=== PATIENT | female | born 1995 | race Caucasian/White ===

== ENCOUNTER 2016-08-28 18:16 | Emergency (ER) | payer MEDICAID ==
[2016-08-28] MEDS ORDERED: CALNTAB (18:55)
[2016-08-28] MEDS ORDERED: FERR1TAB36 PO (18:56)
--- NOTE | 2016-08-28 18:56 | PD ---
HPI Chief Complaint Yeast infection Date Seen: Aug 28, 2016 Time Seen: 18:50 Travel History International Travel<30 Days: No Contact w/Intl Traveler<30Days: No Known Affected Area: No History of Present Illness HPI 21-year-old 1 at 39+ weeks gestation who presents today for concerns that she has a yeast infection. She states that she treated herself with an exdw-syh-qkdrncl yeast product about 2 weeks ago and now has a return of her symptoms. She reports itching and curdy discharge. No bleeding, leakage of fluid or contractions. Para: 0 : 1 History Past Medical History Medical History: Denies Significant Hx Obstetric History Obstetric History Primigravida under the care of [facility] Past Surgical History Surgical History: No Previous Surgery Family History Family History: Negative Social History Alcohol Use: No Tobacco Use: No Substance Abuse: No Review of Systems Except as stated in HPI: all other systems reviewed are Neg Physical Exam Narrative GENERAL: Well-nourished, well-developed patient. SKIN: Warm and dry. HEAD: Normocephalic and atraumatic. EYES: No scleral icterus. No injection or drainage. ENT: No nasal drainage noted. Mucous membranes pink. Airway patent. NECK: Supple, trachea midline. No JVD. ABDOMEN/GI: Abdomen soft, non-tender, bowel sounds present, no rebound, no guarding Gravid to [-] weeks size Fundal Height: [-] GENITOURINARY: External Genitalia: intact and normal in appearance BUS glands: [The vagina contains a thick curdy discharge consistent with yeast infection-] Cervix: [-] Dilatation: [Closed-] Effacement: [-Long] Station: [-2-] Presentation: [-Vertex] Membranes: [intact ] Uterine Contractions: [-Mild irregular] FHT's: Category: [-] Baseline: [-] Reactive: [Yes-] Variability: [-] Decels: [-] EXTREMITIES: No cyanosis or edema. BACK: Nontender without obvious deformity. No CVA tenderness. NEUROLOGICAL: Awake and alert. Motor and sensory grossly within normal limits. Five out of 5 muscle strength in all muscle groups. Normal speech. Data Data Vital Signs Reviewed: Yes Orders Urinalysis - C+S If Indicated (08/28/16 18:21) MDM Medical Record Reviewed: No Narrative Course / MDM Assessment: 39 week primigravida with yeast infection Plan: She will initiate a repeat treatment course of ptco-oge-icwaons yeast medication. Labor precautions were reviewed with her. A group B strep culture was obtained. Diagnosis Diagnosis: Primary Impression: with 39 completed weeks gestation Additional Impression: Vaginitis affecting in third trimester, antepartum Disposition: 01 DISCHARGE HOME Condition: Good Law Smith MD Aug 28, 2016 18:56
== END 2016-08-28 19:01 | disposition home or self-care (01) ==
LOC: HOBED 18:16
DX: O23.593 Infection of other part of genital tract in pregnancy, third trimester (principal); Z3A.39 39 weeks gestation of pregnancy
CPT/HCPCS: 87081; 99284

== ENCOUNTER 2016-09-04 15:30 | Emergency (ER) | payer MEDICAID ==
[~2016-09-04 15:30] MED LIST: CALNTAB; FERR1TAB36 PO
--- NOTE | 2016-09-04 16:06 | PD ---
HPI Chief Complaint Decreased movement Date Seen: Sep 04, 2016 Travel History International Travel<30 Days: No Contact w/Intl Traveler<30Days: No Known Affected Area: No History of Present Illness HPI Patient is 21-year-old black female at 40 weeks followed [facility] care presents for decreased movement today. No bleeding or ruptured membranes no regular contractions Para: 0 : 1 History Past Medical History Medical History: Denies Significant Hx Social History Alcohol Use: No Tobacco Use: No Substance Abuse: No Allergies-Medications (Allergen,Severity, Reaction): Coded Allergies: No Known Allergies (Unverified , 09/04/16) Home Meds Reported Medications Ferrous Sulfate (Iron)325 Mg [id number] Mg PO BIDPC Ref 0 Take after a meal. 08/28/16 Vitamin (Calna)1 Tab Tab 08/28/16 Review of Systems General / Constitutional: No: Fever, Weight Gain, Chills, Other Eyes: No: Diploplia, Blurred Vision, Visual changes, Pain, Photophobia HENT: No: Headaches, Vertigo, Lightheadedness Cardiovascular: No: Irregular Rhythm, Chest Pain or Discomfort, Palpitations, Tachycardia, Syncope, Varicosities, Edema, Cyanosis Respiratory: No: Cough, Short of Breath, Other Gastrointestinal: No: Nausea, Vomiting, Diarrhea Genitourinary: No: Decreased Urinary Output, Oliguria Musculoskeletal: No: Limited ROM, Weakness, Cramping, Edema, Pain Skin: No Rash, No Itching, No Dryness, No Lumps, No Change in Pigmentation, No Change in Nails, No Alopecia, No Lesions Neurologic: No: Weakness, Dizziness, Syncope, Focal Abnormalities, Coordination Problem, Headache, Slurred Speech, Seizures Psychiatric: No: Depression, Suicidal Ideations, Homicidal Ideation Endocrine: No: Heat Intolerance, Cold Intolerance, Polydipsia, Polyuria, Other Physical Exam Narrative GENERAL: Well-nourished, well-developed patient. SKIN: Warm and dry. HEAD: Normocephalic and atraumatic. EYES: No scleral icterus. No injection or drainage. ENT: No nasal drainage noted. Mucous membranes pink. Airway patent. NECK: Supple, trachea midline. No JVD. CARDIOVASCULAR: Regular rate and rhythm without murmurs, gallops, or rubs. RESPIRATORY: Breath sounds equal bilaterally. No accessory muscle use. BREASTS: Bilateral exam showed no masses , no retractions, no nipple discharge. ABDOMEN/GI: Abdomen soft, non-tender, bowel sounds present, no rebound, no guarding Gravid to [40-] weeks size Fundal Height: [37-] GENITOURINARY: External Genitalia: intact and normal in appearance BUS glands: [-] Cervix: [-] Dilatation: [-fingertip] Effacement: [60-] Station: [-3] Presentation: [-vtx] Membranes: [intact ] Uterine Contractions: [occasional-] FHT's: Category: [-1] Baseline: [-133] Reactive: [-yes] Variability: [mod-] Decels: [none-] EXTREMITIES: No cyanosis or edema. BACK: Nontender without obvious deformity. No CVA tenderness. NEUROLOGICAL: Awake and alert. Motor and sensory grossly within normal limits. Five out of 5 muscle strength in all muscle groups. Normal speech. MDM Interpretation(s) Patient is 21-year-old black female at 40 weeks followed by [facility] for care presents for decreased movement. Patient states that she is feeling movement just a little bit less than normal and I related to the patient that is fairly normal at the end the baby slowdown some, she denies any other present problem the leaking bleeding etc. she is having a few irregular contractions barely feeling those. Cervix is fingertip 60 and -3 vertex and her heart rate tracing is reactive Plan Simmons discharged home with information on kick counts, for follow-up with her OB provider Diagnosis Diagnosis: Primary Impression: Decreased movement affecting management of in third trimester Disposition: 01 DISCHARGE HOME Condition: Stable Lee Adler II, MD Sep 04, 2016 16:06
== END 2016-09-04 16:20 | disposition home or self-care (01) ==
LOC: HOBED 15:30
DX: O36.8130 Decreased fetal movements, third trimester, not applicable or unspecified (principal); Z3A.40 40 weeks gestation of pregnancy
CPT/HCPCS: 99283

== ENCOUNTER 2016-09-09 20:43 | Inpatient (IN) | payer MEDICAID ==
[2016-09-09] MEDS ORDERED: OXYTOCIN 30 UNITS-500ML PREMIX 500 ML IV ONE (21:15)
[2016-09-09] MEDS ORDERED: MINERAL OIL 10 ML VIAL TOPICAL PRN (21:15)
[2016-09-09] MEDS: LACTATED RINGER'S 1000 ML INJ 1,000 ML IV SCH (21:15)
[2016-09-09] MEDS ORDERED: LACTATED RINGER'S 1000 ML INJ 1,000 ML IV PRN (21:15)
[2016-09-09] MEDS ORDERED: SODIUM CHLORID 0.9% 500 ML INJ 500 ML IV PRN (21:15)
[2016-09-09] MEDS ORDERED: LIDOCAINE HCL 1% 50 ML VIAL I-DERMAL PRN (21:15)
[2016-09-09] MEDS ORDERED: LIDOCAINE HCL 1% 50 ML VIAL INFIL PRN (21:15)
[2016-09-09] MEDS ORDERED: DINOPROSTONE 10 MG VAG INSERT VAGINAL ONE (21:15)
[2016-09-09] MEDS ORDERED: CITRIC ACID-SODIUM CITRATE LIQ 30 ML UDC PO SCH (21:15)
[2016-09-09 21:18] VITALS: BP 132/72; PULSE 81
--- NOTE | 2016-09-09 21:22 | HHI.HP ---
HPI Travel History International Travel<30 Days: No Contact w/Intl Traveler<30Days: No Known Affected Area: No History of Present Illness HPI This patient is a 21-year-old 1 para 0 EDC is September 01, 2016 presently at 41 weeks and 1 day she presents for induction of labor secondary to postdates care with [facility] as been unremarkable history of anemia her one-hour GTT was 76 group B strep is negative GC chlamydia negative Patient having no complaints no ruptured membranes no contractions no vaginal bleeding states the baby is active History Past Medical History Narrative Medical No known drug allergies no major medical problems Obstetric History Obstetric History First Past Surgical History Surgical History: No Previous Surgery Family History Family History: Negative Social History Alcohol Use: No Tobacco Use: No Substance Abuse: No Allergies-Medications (Allergen,Severity, Reaction): Coded Allergies: No Known Allergies (Unverified , 09/04/16) Home Meds Reported Medications Ferrous Sulfate (Iron)325 Mg Top801 Mg PO BIDPC Ref 0 Take after a meal. 08/28/16 Vitamin (Calna)1 Tab Tab 08/28/16 Physical Exam Narrative GENERAL: Well-nourished, well-developed patient. Alert oriented 3 and cooperative in no acute distress CARDIOVASCULAR: Regular rate and rhythm without murmurs, gallops, or rubs. RESPIRATORY: Breath sounds equal bilaterally. No accessory muscle use. ABDOMEN/GI: Gravid term estimated weight 6-1/2-7 pounds Gravid to [-] weeks size term Fundal Height: [-] GENITOURINARY: External Genitalia: intact and normal in appearance BUS glands: [-] Cervix: [-] Posterior soft Dilatation: [-] 1 cm Effacement: [-] 80% effaced Station: [-] -1 station Presentation: [-] Vertex Membranes: [intact Uterine Contractions: [-] Occasional irregular FHT's: Category: [-] 1 Baseline: [-] 140 Reactive: [-]+ Variability: [-] Moderate Decels: [-] 0 EXTREMITIES: No cyanosis or edema. 2+ reflexes NEUROLOGICAL: Awake and alert. Motor and sensory grossly within normal limits. Five out of 5 muscle strength in all muscle groups. Normal speech. Data Data Vital Signs Reviewed: Yes Orders Admit To Inpatient (09/09/16 ) Code Status (09/09/16 21:15) Vital Signs (Adult) .Per protocol (09/09/16 21:15) ^ Heart (09/09/16 21:15) ^ Amnioinfusion (09/09/16 21:15) Urinary Catheter Management .ONCE (09/09/16 21:15) Diet Liquid (09/10/16 Breakfast) Lactated Ringer's 1000 Ml Inj (Lr 1000 M (09/09/16 21:15) Lactated Ringer's 1000 Ml Inj (Lr 1000 M (09/09/16 21:15) Sodium Chlorid 0.9% 500 Ml Inj (Ns 500 M (09/09/16 21:15) Sodium Chlor 0.9% 1000 Ml Inj (Ns 1000 M (09/09/16 21:35) Lidocaine 1% Inj (50 Ml) (Xylocaine 1% I (09/09/16 21:15) Citric Acid-Sodium Citrate Liq (Bicitra (09/09/16 21:15) Fentanyl Inj (Fentanyl Inj) (09/09/16 21:15) Fentanyl Inj (Fentanyl Inj) (09/09/16 21:15) Complete Blood Count With Diff (09/09/16 21:15) Hold Clot (09/09/16 21:15) Abo/Rh Blood Type (09/09/16 21:15) Urinalysis - C+S If Indicated (09/09/16 21:15) Resp Oxygen Non Rebreathe Mask (09/09/16 ) ^ Epidural / Intrathecal Infus (09/09/16 21:15) Oxytocin 30 Units-500ml Premix (Pitocin (09/09/16 21:15) Lidocaine 1% Inj (50 Ml) (Xylocaine 1% I (09/09/16 21:15) Light Mineral Oil (Muri-Lube Oil) (09/09/16 21:15) ^ Non Stress Test (09/09/16 21:15) Response To Medication .Post New Med Administration, Reaction (09/09/16 21:15) ^ Discontinue Medication (09/09/16 21:15) Oxytocin Drip (1-1-30) (09/10/16 09:00) Dinoprostone Vag Insert (Cervidil Vag In (09/09/16 21:15) Assessment/Plan Assessment and Plan Assessment; 21-year-old 1 para 0 at 41 weeks 1 day Postdates Group B strep negative Plan; admit External monitoring IV fluid hydration CBC type and screen Cervidil cervical ripening Pitocin in the a.Margi Wallace MD Sep 09, 2016 21:22
[2016-09-09 21:23] VITALS: RESP 18; TEMP 98.6
[2016-09-09] MEDS ORDERED: SODIUM CHLOR 0.9% 1000 ML INJ 1,000 ML IV PRN (21:35)
[2016-09-09 21:42] LABS: BLOOD, URINE NEG (NEG); COMMENT (UR) CULTURE INDICATED; CULTURE IF INDICATED CULTURE INDICATED; GLUCOSE,URINE NEG (NEG); KETONE, URINE NEG (NEG); MUCUS URINE FEW /lpf (OCC); NITRITE,URINE NEG (NEG); PH, URINE 7.5 (5.0-8.5); SQUAMOUS EPITHELIAL CELL URINE 5 /hpf (0-5); URINE COLOR YELLOW (YELLW/STRAW)
[2016-09-09 22:07] LABS: AUTOMATED NEUTROPHIL # 5.8 TH/MM3 (1.8-7.7); BASOPHIL % 0.3 % (0.0-2.0); EOSINOPHIL # 0.1 TH/MM3 (0-0.4); EOSINOPHIL % 1.1 % (0.0-4.0); HEMATOCRIT 32.5 % (35.0-46.0); HEMO FLAGS DIFF FINAL; LYMPHOCYTE # 1.2 TH/MM3 (1.0-4.8); MEAN CELL VOLUME 78.2 FL (80.0-100.0); MEAN CORPUSCULAR HGB CONC 33.2 % (32.0-36.0); MONO % 8.4 % (0.0-8.0); NEUT % 75.2 % (16.0-70.0); PLATELET COUNT 265 TH/MM3 (150-450); RED BLOOD COUNT 4.15 MIL/MM3 (4.00-5.30); RED CELL DISTRIBUTION WIDTH 17.1 % (11.6-17.2); WHITE BLOOD COUNT 7.7 TH/MM3 (4.0-11.0)
[2016-09-09 22:30] VITALS: BP 130/74; PULSE 83
[2016-09-09 22:31] VITALS: RESP 18
[2016-09-09 23:45] VITALS: BP 135/80; PULSE 81; RESP 18; TEMP 98.2
[2016-09-10] VITALS (64 sets, daily range): BP systolic 101–164; BP diastolic 51–149; PULSE 71–130; RESP 18–20; TEMP 98.2–99.4
--- NOTE | 2016-09-10 00:43 | PD.LABORPN ---
Subjective Subjective Patient and a considerable amount of pain desires an epidural Objective Vital Signs Episode of a variable deceleration good recovery Cervidil has been removed Vital Signs Date Time Temp Pulse Resp B/P Pulse Ox O2 Delivery O2 Flow Rate FiO2 09/09/16 23:45 18 09/09/16 23:45 98.2 81 135/80 09/09/16 22:31 18 09/09/16 22:30 83 130/74 09/09/16 21:23 98.6 09/09/16 21:23 18 09/09/16 21:18 81 132/72 Objective Pelvic Exam: Cervix: [-] Slightly posterior Dilatation: [-] 4 cm Effacement: [-] 100% Station: [-] -2 station Presentation: [-] Vertex Membranes: [intact Uterine Contractions: [-] Every 2 minutes FHT's: Category: [-]1 Baseline: [-] 150 Reactive: [-] + Variability: [-] Moderate ecfz-ia-ocwg variability Decels: [-] Previous episode of a variable deceleration Assessment/Plan Assessment and Plan Assessment; good progress of labor Cervidil removed Epidural anesthesia Plan; will do artificial rupture of membranes once epidural is placed Margi Aguillon MD Sep 10, 2016 00:43
[2016-09-10] MEDS ORDERED: fentaNYL 2MCG-BUPIV 0.125% INJ 100 ML ONE (00:47)
[2016-09-10] MEDS ORDERED: NO SYSTEM NARCOTICS XX PRN (01:45)
[2016-09-10] MEDS ORDERED: fentaNYL 2MCG-BUPIV 0.125% 100 ML EPIDURAL SCH (01:45)
[2016-09-10] MEDS ORDERED: DO NOT ADMINISTER ANTICOAGULANTS XX PRN (01:45)
[2016-09-10] MEDS ORDERED: ePHEDrine/NS 25 MG/5 ML SYR IV PRN (01:45)
--- NOTE | 2016-09-10 04:27 | PD.LABORPN ---
Subjective Subjective Patient is comfortable with an epidural Objective Vital Signs Vital Signs Date Time Temp Pulse Resp B/P Pulse Ox O2 Delivery O2 Flow Rate FiO2 09/10/16 04:00 96 109/63 09/10/16 03:37 98.5 18 09/10/16 03:30 94 109/60 09/10/16 03:00 102 101/51 09/10/16 02:45 18 09/10/16 02:30 97 105/55 09/10/16 02:15 18 09/10/16 02:00 87 118/62 09/10/16 01:40 18 09/10/16 01:35 96 09/10/16 01:30 145/79 09/10/16 01:25 90 09/10/16 01:24 129/60 09/10/16 01:20 83 124/63 09/10/16 01:15 88 129/68 09/10/16 01:10 92 158/92 09/10/16 01:06 104 137/84 09/10/16 00:55 106 153/91 09/09/16 23:45 18 09/09/16 23:45 98.2 81 135/80 09/09/16 22:31 18 09/09/16 22:30 83 130/74 09/09/16 21:23 98.6 09/09/16 21:23 18 09/09/16 21:18 81 132/72 Objective Pelvic Exam: Cervix: [-] Line Dilatation: [-] 4-5 cm Effacement: [-] 100% effaced Station: [-] -2 station Presentation: [-] Vertex Membranes: ruptured] scant amount of fluid as there was bloody show at the surface fluid mixed with blood but no meconium seen Uterine Contractions: [-] Irregular FHT's: Category: [-] 1 Baseline: [-] 150-160 Reactive: [-]+ Variability: [-] Moderate pznu-pd-odqx variability Decels: [-] Patient had an episode of what appeared to be a variable deceleration no repeat seen Assessment/Plan Assessment and Plan Assessment; irregular pattern Scant amniotic fluid most likely secondary to postdates Plan; augment with very low dose Pitocin as the patient presently has a category 1 tracing Moderate jpyk-he-yvgl variability with positive accelerations with scalp stim no decelerations noted at this time Will give 1 milliunit of Pitocin Margi Aguillon MD Sep 10, 2016 04:27
[2016-09-10] MEDS: LACTATED RINGER'S 1000 ML INJ 1,000 ML IV SCH (05:15)
--- NOTE | 2016-09-10 05:52 | PD.LABORPN ---
Subjective Subjective Patient is still comfortable with epidural Objective Vital Signs Patient examined she is 100% effaced 5 cm dilated and to what appeared to be late decelerations in a row however the beat variability is moderate she has positive accelerations with acoustic stimulation and scalp stem IUPC placed to better pecan picker the contractions the Pitocin which had been started at 1 cm was discontinued as the patient appears to not tolerate Pitocin well She is presently receiving and amnioinfusion positional change sitting straight up And now has a category 1 tracing with baseline about 150 positive accelerations moderate tndn-rn-ynlc variability We'll continue to monitor closely Vital Signs Date Time Temp Pulse Resp B/P Pulse Ox O2 Delivery O2 Flow Rate FiO2 09/10/16 05:30 84 125/68 09/10/16 05:00 86 111/58 09/10/16 04:45 18 09/10/16 04:30 79 110/54 09/10/16 04:00 96 109/63 09/10/16 03:37 98.5 18 09/10/16 03:30 94 109/60 09/10/16 03:00 102 101/51 09/10/16 02:45 18 09/10/16 02:30 97 105/55 09/10/16 02:15 18 09/10/16 02:00 87 118/62 09/10/16 01:40 18 09/10/16 01:35 96 09/10/16 01:30 145/79 09/10/16 01:25 90 09/10/16 01:24 129/60 09/10/16 01:20 83 124/63 09/10/16 01:15 88 129/68 09/10/16 01:10 92 158/92 09/10/16 01:06 104 137/84 09/10/16 00:55 106 153/91 09/09/16 23:45 18 09/09/16 23:45 98.2 81 135/80 09/09/16 22:31 18 09/09/16 22:30 83 130/74 Objective Pelvic Exam: Cervix: [-] Dilatation: [-] Effacement: [-] Station: [-] Presentation: [-] Membranes: [intact or ruptured] Uterine Contractions: [-] FHT's: Category: [-] Baseline: [-] Reactive: [-] Variability: [-] Decels: [-] Menjivar-Winn,Margi L. MD Sep 10, 2016 05:52
--- NOTE | 2016-09-10 07:02 | PD.LABORPN ---
Objective Vital Signs Vital Signs Date Time Temp Pulse Resp B/P Pulse Ox O2 Delivery O2 Flow Rate FiO2 09/10/16 06:37 18 09/10/16 06:30 79 114/64 09/10/16 06:07 98.5 09/10/16 06:06 18 09/10/16 06:00 71 122/65 09/10/16 05:30 84 125/68 09/10/16 05:00 86 111/58 09/10/16 04:45 18 09/10/16 04:30 79 110/54 09/10/16 04:00 96 109/63 09/10/16 03:37 98.5 18 09/10/16 03:30 94 109/60 09/10/16 03:00 102 101/51 09/10/16 02:45 18 09/10/16 02:30 97 105/55 09/10/16 02:15 18 09/10/16 02:00 87 118/62 09/10/16 01:40 18 09/10/16 01:35 96 09/10/16 01:30 145/79 09/10/16 01:25 90 09/10/16 01:24 129/60 09/10/16 01:20 83 124/63 09/10/16 01:15 88 129/68 09/10/16 01:10 92 158/92 09/10/16 01:06 104 137/84 09/10/16 00:55 106 153/91 09/10/16 00:47 18 09/09/16 23:45 18 09/09/16 23:45 98.2 81 135/80 Objective Completely effaced/6 cm dilated/vertex at a -1 station FHT's: Category: [-] 1 Baseline: [-]140 Reactive: [-] + Variability: [-] Moderate variability Decels: [-] Patient periodically has a variable deceleration presently she has a category 1 tracing Is moderate variability there's positive accelerations Positive accelerations with scalp stimulation as well as acoustic stimulation Contractions are now every 2 minutes Progress has been made in labor In view of the reassuring heart rate will continue progression in labor Pitocin was discontinued some time ago as the baby was not even tolerating the 1 milliunit Amnioinfusion is presently running There has been no meconium although there was only a scant amount of fluid present We'll continue to monitor closely Hospitalist changing shifts at 10 AM Will sign this patient out to the on coming hospitalist if she is undelivered Margi Aguillon MD Sep 10, 2016 07:02
--- NOTE | 2016-09-10 08:32 | PD.LABORPN ---
Objective Vital Signs Patient examined; 100% effaced Cervix is 7-8 cm dilated Vertex is at a 0 to almost a +1 station The cervix is tight around the vertex Contractions are roughly every 2 minutes moderate intensity Positive accelerations with scalp stimulation Some early to variable decelerations however moderate magh-eg-uiym variability positive accelerations Positive accelerations with scalp stim and acoustic stimulation Continue to monitor the patient closely Vital Signs Date Time Temp Pulse Resp B/P Pulse Ox O2 Delivery O2 Flow Rate FiO2 09/10/16 08:00 101 126/79 09/10/16 07:54 20 09/10/16 07:54 82 115/63 09/10/16 07:30 83 115/67 09/10/16 07:00 20 09/10/16 06:59 98.3 09/10/16 06:59 76 121/64 09/10/16 06:37 18 09/10/16 06:30 79 114/64 09/10/16 06:07 98.5 09/10/16 06:06 18 09/10/16 06:00 71 122/65 09/10/16 05:30 84 125/68 09/10/16 05:00 86 111/58 09/10/16 04:45 18 09/10/16 04:30 79 110/54 09/10/16 04:00 96 109/63 09/10/16 03:37 98.5 18 09/10/16 03:30 94 109/60 09/10/16 03:00 102 101/51 09/10/16 02:45 18 09/10/16 02:30 97 105/55 09/10/16 02:15 18 09/10/16 02:00 87 118/62 09/10/16 01:40 18 09/10/16 01:35 96 09/10/16 01:30 145/79 09/10/16 01:25 90 09/10/16 01:24 129/60 09/10/16 01:20 83 124/63 09/10/16 01:15 88 129/68 09/10/16 01:10 92 158/92 09/10/16 01:06 104 137/84 09/10/16 00:55 106 153/91 09/10/16 00:47 18 Objective Pelvic Exam: Cervix: [-] Dilatation: [-] Effacement: [-] Station: [-] Presentation: [-] Membranes: [intact or ruptured] Uterine Contractions: [-] FHT's: Category: [-] Baseline: [-] Reactive: [-] Variability: [-] Decels: [-] Margi Aguillon MD Sep 10, 2016 08:32
[2016-09-10] MEDS ORDERED: OXYTOCIN 30 UNITS-500ML PREMIX 500 ML IV SCH (09:00)
--- NOTE | 2016-09-10 10:55 | PD.OB.DELI ---
Delivery Date: Sep 10, 2016 Anesthesia: Epidural Episiotomy: None Vaginal Delivery: Normal, Spontaneous Presentation: Occiput anterior Nuchal Cord: None Delayed cord clamping (45 sec): Yes Infant: Male One Minute : 9 Five Minute : 9 Weight: 2895 grams Infant Care: Suctioned, Responded to stimulation Placenta: Spontaneous delivery, Intact, 3 vessel cord Laceration: Vaginal laceration, 1 deg Repair: Chromic interrupted, Chromic running Additional Information 21 year old now delivered at 41/2 weeks gestation via vaginal delivery over an intact perineum. Placenta delivered spontaneously intact with 3-vessel cord. Apgars were 9/9. A small first degree vaginal laceration was repaired using 3.0 chromic suture and small ~1cm laceration along right anterior vaginal wall repaired using 3.0 running chromic suture. EBL < 500 cc. (Bobby Yang MD R1) Additional Information Patient seen and evaluated with resident, delivery performed under direct supervision, agree with assessment and plan. (Law Smith MD) Bobby Yang MD R1 Sep 10, 2016 10:55 Law Smith MD Sep 10, 2016 12:48
[2016-09-10] MEDS ORDERED: DOCUSATE SODIUM 50 MG/SENNA 8.6 MG TAB PO PRN (11:00)
[2016-09-10] MEDS ORDERED: WITCH HAZEL 50%/GLYCERIN 12.5% 40 PAD JAR TOPICAL PRN (11:00)
[2016-09-10] MEDS ORDERED: BENZOCAINE 20% TOPICAL SPRAY 60 ML CAN TOPICAL PRN (11:00)
[2016-09-10] MEDS ORDERED: ONDANSETRON ODT 4 MG TAB PO PRN (11:00)
[2016-09-10] MEDS ORDERED: SODIUM CHLORIDE 0.9% FLUSH 5 ML FLUSH IV PRN (11:00)
[2016-09-10] MEDS ORDERED: ALUMINUM/MAGNESIUM/SIMETH 30 ML CUP PO PRN (11:00)
[2016-09-10] MEDS ORDERED: MEASLES, MUMPS, RUBELLA VACCINE 0.5 ML VIAL SQ ONE (16:00)
[2016-09-10] MEDS ORDERED: DIPHTH/TETANUS/ACEL PERTUSSIS (BOOSTER) 0.5 ML VIAL/PFS IM ONE (16:00)
[2016-09-10] MEDS ORDERED: ZOLPIDEM TARTRATE 5 MG TAB PO PRN (21:00)
[2016-09-10] MEDS: SODIUM CHLORIDE 0.9% FLUSH 5 ML FLUSH IV SCH (21:00)
[2016-09-10] MEDS: IBUPROFEN 600 MG TAB PO PRN (23:35)
[2016-09-11 08:45] VITALS: BP 105/63; PULSE 68; RESP 18; TEMP 97.5
[2016-09-11] MEDS: IBUPROFEN 600 MG TAB PO PRN ×2 (08:54→17:07)
--- NOTE | 2016-09-11 10:39 | HHI.OB ---
Subjective Post Day: 1 Remarks Pt seen and examined this morning. day # 1 AFVSS overnight. Decreased lochia. Denies dysuria. No breast tenderness. She is feeding the baby via breast and bottle. Appetite good. No nausea or vomiting. Patient has not yet had a bowel movement. + flatus. Ambulating well. Denies calf pain or shortness of breath. Otherwise, she is doing well this morning and has no other concerns. (Justice Dueñas MD R2) Remarks Patient seen and evaluated with resident under direct supervision, agree with assessment and plan. (Law Smith MD) Objective Vitals/I&O Vital Signs Date Time Temp Pulse Resp B/P Pulse Ox O2 Delivery O2 Flow Rate FiO2 09/10/16 21:00 98.2 85 18 116/69 09/10/16 13:33 98.3 09/10/16 13:32 86 18 118/58 09/10/16 13:15 99.1 09/10/16 12:30 88 117/71 09/10/16 12:20 99 09/10/16 12:15 91 09/10/16 12:10 91 09/10/16 12:05 93 09/10/16 12:00 105 09/10/16 12:00 103 131/66 09/10/16 11:55 89 09/10/16 11:54 99.0 18 09/10/16 11:52 87 120/61 09/10/16 11:50 18 09/10/16 11:50 100 09/10/16 11:50 120/61 09/10/16 11:45 106 09/10/16 11:40 101 09/10/16 11:35 101 09/10/16 11:33 18 09/10/16 11:30 97 09/10/16 11:30 109 124/83 09/10/16 11:10 108 09/10/16 11:07 18 09/10/16 11:07 98 114/86 09/10/16 11:05 102 09/10/16 11:00 111 115/87 09/10/16 11:00 109 09/10/16 10:56 99.4 09/10/16 10:53 130 20 125/83 09/10/16 10:38 124 131/74 Objective Remarks GENERAL: Well-nourished, well-developed patient. CARDIOVASCULAR: Regular rate and rhythm without murmurs, gallops, or rubs. RESPIRATORY: Breath sounds equal bilaterally. No accessory muscle use. ABDOMEN/GI: Abdomen soft, non-tender. Fundus: Firm, non-tender at umbilicus. GENITOURINARY: Light to moderate bleeding. EXTREMITIES: No cyanosis or edema, non-tender, without signs of DVT. Medications and IVs Current Medications Medications (Trade) Dose Ordered Sig/Sidney Route Start Time Stop Time Status Last Admin Lactated Ringer's 1,000 ml @ 125 mls/hr Q8H IV 09/09/16 21:15 09/10/16 05:15 Lactated Ringer's 1,000 ml @ 3,000 mls/hr Q20M PRN IV 09/09/16 21:15 (NS 1000 ml Inj) 1,000 ml @ 100 mls/hr Q10H PRN IV 09/09/16 21:35 09/10/16 06:24 (fentaNYL INJ) 50 mcg Q1H PRN IV PUSH 09/09/16 21:15 09/10/16 00:35 (fentaNYL INJ) 100 mcg Q1H PRN IV PUSH 09/09/16 21:15 Mineral Oil 10 ml 10 ml UNSCH PRN TOPICAL 09/09/16 21:15 Oxytocin 500 ml @ 0 mls/hr TITRATE IV 09/10/16 09:00 09/10/16 05:17 (fentaNYL 2MCG-BUPIV 0.125% INJ) 100 ml @ 0 mls/hr TITRATE EPIDURAL 09/10/16 01:45 (NS Flush) 2 ml BID IV 09/10/16 21:00 (NS Flush) 2 ml UNSCH PRN IV 09/10/16 11:00 (Tylenol) 650 mg Q4H PRN PO 09/10/16 11:00 (Motrin) 600 mg Q6H PRN PO 09/10/16 11:00 09/11/16 08:54 (Americaine 20% Top Spr) 1 spray Q4H PRN TOPICAL 09/10/16 11:00 09/10/16 16:52 (Tucks Pads) 1 applic QID PRN TOPICAL 09/10/16 11:00 09/10/16 16:52 (Ree-Colace) 2 tab Q12H PRN PO 09/10/16 11:00 (Ambien) 5 mg HS PRN PO 09/10/16 21:00 (Mag-Al Plus Susp Liq) 15 ml Q8H PRN PO 09/10/16 11:00 (Zofran Odt) 4 mg Q6H PRN PO 09/10/16 11:00 (Justice Dueñas MD R2) Assessment/Plan Assessment and Plan 21 y/o female who is PPD# 1 s/p . -Continue routine care. -Percocet and Motrin PRN pain. -Encouraged OOB. Advised pelvic rest for 6 wks. -Re: ctrl, she would like to further consider her options, she is interested in an IUD. -Pt sees [facility], she was encouraged to call [facility] for IUD placement at 6 weeks post -Anticipate discharge later today. dw Dr. Sarah MD (Justice Dueñas MD R2) Justice Dueñas MD R2 Sep 11, 2016 10:39 Law Smith MD Sep 12, 2016 11:15
[2016-09-11] MEDS ORDERED: IBUP-232 PO (10:45)
[2016-09-11] MEDS ORDERED: SENN1TAB PO (10:45)
--- NOTE | 2016-09-11 10:46 | HHI.DCPOC ---
Discharge Care Plan Diagnosis: (1) Vaginal delivery Report Symptoms to Your Doctor -Temperate above 100.5 degrees -Redness, of incision or excessive or foul smelling drainage -Unusual pain or calf pain -Increased vaginal bleeding -Painful or difficulty urinating -Feelings of extreme sadness or anxiety after 2 weeks Goals to Promote Your Health * To prevent worsening of your condition and complications * To maintain your health at the optimal level Directions to Meet Your Goals Take your medications as prescribed Follow your dietary instruction Follow activity as directed Ensure plenty of rest for recovery Drink fluids for hydration Keep your appointments as scheduled Take your immunizations and boosters as scheduled If your symptoms worsen call your PCP, if no PCP go to Urgent Care Center or Emergency Room Smoking is Dangerous to Your Health. Avoid second hand smoke Call the 24-hour crisis hotline for domestic abuse at Justice Dueñas MD R2 Sep 11, 2016 10:46
[2016-09-11 19:50] VITALS: BP 119/67; PULSE 82; RESP 16; TEMP 98.2
[2016-09-11] MEDS: ACETAMINOPHEN 325 MG TAB PO PRN (19:57)
[2016-09-11] MEDS: SODIUM CHLORIDE 0.9% FLUSH 5 ML FLUSH IV SCH (21:00)
[2016-09-11] MEDS: LACTATED RINGER'S 1000 ML INJ 1,000 ML IV SCH (21:15)
[2016-09-12] MEDS: ACETAMINOPHEN 325 MG TAB PO PRN (05:59)
[2016-09-12] MEDS: IBUPROFEN 600 MG TAB PO PRN (05:59)
--- NOTE | 2016-09-12 07:03 | HHI.OB ---
Subjective Post Day: 2 Remarks 21 year old female s/p NVD at 41/2 wks gestation, PPD 2. AFVSS. Patient reports she is feeling well. Bleeding is decreasing and pain is well- controlled. She is breast feeding and bonding well with baby. Ambulating without difficulties. She is tolerating a diet without nausea or vomiting. She has had a bowel movement. She has passed gas. Denies chest pain, dysuria, shortness of breath, or calf pain. Objective Vitals/I&O Vital Signs Date Time Temp Pulse Resp B/P Pulse Ox O2 Delivery O2 Flow Rate FiO2 09/11/16 19:50 98.2 82 16 09/11/16 19:50 119/67 09/11/16 08:45 97.5 68 18 105/63 Objective Remarks GENERAL: Well-nourished, well-developed patient lying in bed sleepy in NAD CARDIOVASCULAR: Regular rate and rhythm without murmurs, gallops, or rubs. RESPIRATORY: CTAB anteriorly. No crackles or wheezes. ABDOMEN/GI: Abdomen soft, non-tender. Fundus: Firm, non-tender at umbilicus. GENITOURINARY: Light to moderate bleeding. EXTREMITIES: No cyanosis or edema, non-tender, without signs of DVT. Medications and IVs Current Medications Medications (Trade) Dose Ordered Sig/Sidney Route Start Time Stop Time Status Last Admin Lactated Ringer's 1,000 ml @ 125 mls/hr Q8H IV 09/09/16 21:15 09/10/16 05:15 Lactated Ringer's 1,000 ml @ 3,000 mls/hr Q20M PRN IV 09/09/16 21:15 (NS 1000 ml Inj) 1,000 ml @ 100 mls/hr Q10H PRN IV 09/09/16 21:35 09/10/16 06:24 (fentaNYL INJ) 50 mcg Q1H PRN IV PUSH 09/09/16 21:15 09/10/16 00:35 (fentaNYL INJ) 100 mcg Q1H PRN IV PUSH 09/09/16 21:15 Mineral Oil 10 ml 10 ml UNSCH PRN TOPICAL 09/09/16 21:15 Oxytocin 500 ml @ 0 mls/hr TITRATE IV 09/10/16 09:00 09/10/16 05:17 (fentaNYL 2MCG-BUPIV 0.125% INJ) 100 ml @ 0 mls/hr TITRATE EPIDURAL 09/10/16 01:45 (NS Flush) 2 ml BID IV 09/10/16 21:00 (NS Flush) 2 ml UNSCH PRN IV 09/10/16 11:00 (Tylenol) 650 mg Q4H PRN PO 09/10/16 11:00 09/12/16 05:59 (Motrin) 600 mg Q6H PRN PO 09/10/16 11:00 09/12/16 05:59 (Americaine 20% Top Spr) 1 spray Q4H PRN TOPICAL 09/10/16 11:00 09/10/16 16:52 (Tucks Pads) 1 applic QID PRN TOPICAL 09/10/16 11:00 09/10/16 16:52 (Ree-Colace) 2 tab Q12H PRN PO 09/10/16 11:00 09/11/16 17:07 (Ambien) 5 mg HS PRN PO 09/10/16 21:00 (Mag-Al Plus Susp Liq) 15 ml Q8H PRN PO 09/10/16 11:00 (Zofran Odt) 4 mg Q6H PRN PO 09/10/16 11:00 (Flu (Quadrivalent) Vaccine Inj) 0.5 ml ONCE ONCE IM 09/13/16 10:00 09/13/16 10:01 Assessment/Plan Assessment and Plan 21 yo female s/p NVD PPD 2. - AFVSS - Continue routine care - Motrin and Percocet PRN pain - Encourage OOB - Pelvic rest x 6 wks. Will follow up with [facility]. Encouraged 1 time followup with . - Contraception: [facility] - D/C home today [facility] Hospitalist Discharge Planning Home today Catarino Ahmadi MD R1 Sep 12, 2016 07:03
[2016-09-12 07:23] VITALS: BP 117/61; PULSE 68; RESP 16; TEMP 98.7
[2016-09-13] MEDS ORDERED: INFLUENZA VIRUS VACCINE (QUADRIVALENT) 0.5 ML SYR IM ONE (10:00)
== END 2016-09-12 09:45 | disposition home or self-care (01) | DRG 775 ==
LOC: H2EB 20:43 → H1EA 09-10 13:07
PROVIDERS: ADMIT Obstetrics & Gynecology; ATTEND Obstetrics & Gynecology
PROC: 10E0XZZ Delivery of Products of Conception, External Approach (ICD-10-PCS; principal; 2016-09-10)
PROC: 0HQ9XZZ Repair Perineum Skin, External Approach (ICD-10-PCS; 2016-09-10)
PROC: 00HU33Z Insertion of Infusion Device into Spinal Canal, Percutaneous Approach (ICD-10-PCS; 2016-09-10)
PROC: 3E0R3CZ (ICD-10-PCS; 2016-09-10)
PROC: 10907ZC Drainage of Amniotic Fluid, Therapeutic from Products of Conception, Via Natural or Artificial Opening (ICD-10-PCS; 2016-09-10)
DX: O48.0 Post-term pregnancy (principal); O70.0 First degree perineal laceration during delivery; Z37.0 Single live birth; Z3A.41 41 weeks gestation of pregnancy
CPT/HCPCS: 59025; 81001; 85025; 86900; 86901; 87086; 90715; J2590; J3010; J7030; J7120